=== PATIENT | female | born 1950 | race American Indian/Alaskan Native ===

== ENCOUNTER 2017-06-30 13:44 | Emergency (ER) | payer OTHER, MEDICARE ==
[2017-06-30] MEDS ORDERED: NORCO 5/325 PO ONE (17:02)
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
[2017-06-30 23:16] VITALS: BP 125/75
== END 2017-06-30 19:45 | disposition home or self-care (01) ==
LOC: ED 13:44
DX: S16.1XXA Strain of muscle, fascia and tendon at neck level, initial encounter (principal); I10 Essential (primary) hypertension; Z79.82 Long term (current) use of aspirin; Z88.2 Allergy status to sulfonamides; Z88.8 Allergy status to other drugs, medicaments and biological substances; V89.2XXA Person injured in unspecified motor-vehicle accident, traffic, initial encounter; Y92.488 Other paved roadways as the place of occurrence of the external cause; Y93.89 Activity, other specified; Y99.8 Other external cause status
CPT/HCPCS: 70450; 72125